=== PATIENT | male | born 1980 | race African-American/Black ===

== ENCOUNTER 2022-11-30 07:44 | Emergency (ER) | payer MEDICAID ==
[~2022-11-30] VITALS: Ht 182.9 cm; Wt 72.0 kg
[2022-11-30 07:47] VITALS: BP 125/50
[2022-11-30] MEDS ORDERED: IBUPROFEN 600MG TABLET PO ONE (09:00)
[2022-11-30] MEDS ORDERED: CEFTRIAXONE SODIUM 1 G/VIAL IM ONE (10:30)
[2022-11-30] MEDS ORDERED: LIDOCAINE HCL 1% 20ML VIAL (Pyxis) INJ INFIL ONE (10:30)
[2022-11-30 10:37] LABS: CLARITY URINE TURBID (CLEAR); COLOR URINE YELLOW (YELLOW); KETONES URINE NEGATIVE (NEGATIVE); LEUKOCYTE ESTERASE URINE NEGATIVE (NEGATIVE); NITRITE URINE NEGATIVE (NEGATIVE); OCCULT BLOOD URINE NEGATIVE (NEGATIVE); PROTEIN URINE NEGATIVE (NEGATIVE); SPECIFIC GRAVITY URINE 1.017 (1.005-1.030); UROBILINOGEN URINE 0.2 E.U./dL (0.2-1.0)
[2022-11-30] MEDS ORDERED: LIDOCAINE HCL 1% 10 MG/ML 10ML VIAL IJ NR (11:15)
[2022-11-30] MEDS ORDERED: DOXY-244 MT (11:28)
[2022-11-30] MEDS ORDERED: METH-773 MT (11:28)
[2022-11-30] MEDS ORDERED: IBUP-2029 MT (11:28)
== END 2022-11-30 11:48 | disposition home or self-care (01) ==
LOC: ER 07:44
DX: M54.50 Low back pain, unspecified (principal); N43.3 Hydrocele, unspecified; N45.1 Epididymitis; V49.49XA Driver injured in collision with other motor vehicles in traffic accident, initial encounter; Y93.89 Activity, other specified; Y92.89 Other specified places as the place of occurrence of the external cause; Y99.8 Other external cause status; E11.9 Type 2 diabetes mellitus without complications
CPT/HCPCS: 72100; 76857; 76870; 81003; 82962; 87086; 93976; 96372; 99285; J0696; J3490